=== PATIENT | male | born 1970 | race African-American/Black ===

== ENCOUNTER 2017-06-04 07:39 | Emergency (ER) | payer MEDICAID ==
[~2017-06-04] VITALS: Ht 177.8 cm; Wt 58.0 kg
[2017-06-04] MEDS ORDERED: THIAMINE 100MG TABLET PO ONE (08:00)
[2017-06-04] MEDS ORDERED: SODIUM CHLORIDE 0.9% 1,000ML IVBOLUS ONE (08:00)
[2017-06-04 08:06] LABS: DAU SCREEN DISCLAIMER
[2017-06-04 08:15] LABS: HEMATOCRIT 44.2 % (39.2-51.8); HEMOGLOBIN 14.7 g/dL (13.7-18.0); WHITE BLOOD COUNT 5.7 x10^3/uL (3.4-10)
[2017-06-04 08:27] LABS: ASPARTATE AMINO TRANSFERASE 17 U/L (15-37); BLOOD UREA NITROGEN 7 mg/dL (7-18)
[2017-06-04 08:41] LABS: ACETAMINOPHEN < 2 mcg/mL (10-30)
[2017-06-04] MEDS ORDERED: THIAMINE 100MG TABLET ONE (09:14)
[2017-06-04 14:30] VITALS: BP 109/82
== END 2017-06-04 14:32 | disposition home or self-care (01) ==
LOC: ED 08:45
DX: Z00.00 Encounter for general adult medical examination without abnormal findings (principal); F32.9 Major depressive disorder, single episode, unspecified; F90.9 Attention-deficit hyperactivity disorder, unspecified type; F42.8 Other obsessive-compulsive disorder
CPT/HCPCS: 36415; 80053; 80307; 80329; 85025; 93005; 99285; J7030; G0480

== ENCOUNTER 2017-06-05 11:13 | Emergency (ER) | payer MEDICAID ==
[~2017-06-05] VITALS: Ht 177.8 cm; Wt 58.7 kg
[2017-06-05 11:41] VITALS: BP 119/73
[2017-06-05 12:07] LABS: HEMATOCRIT 43.7 % (39.2-51.8); HEMOGLOBIN 14.4 g/dL (13.7-18.0); WHITE BLOOD COUNT 5.7 x10^3/uL (3.4-10)
[2017-06-05] MEDS ORDERED: QUETIAPINE 100MG TABLET PO STA (12:12)
[2017-06-05 12:16] LABS: DAU SCREEN DISCLAIMER
[2017-06-05 12:18] LABS: ASPARTATE AMINO TRANSFERASE 14 U/L (15-37); BLOOD UREA NITROGEN 8 mg/dL (7-18)
[2017-06-05 12:22] LABS: ACETAMINOPHEN < 2 mcg/mL (10-30)
== END 2017-06-05 13:50 | disposition home or self-care (01) ==
LOC: ED 11:44
DX: F32.9 Major depressive disorder, single episode, unspecified (principal); F90.9 Attention-deficit hyperactivity disorder, unspecified type; Z88.2 Allergy status to sulfonamides
CPT/HCPCS: 36415; 80053; 80307; 80329; 85025; 99284; G0480